=== PATIENT | female | born 1960 | race Caucasian/White ===

== ENCOUNTER → 2018-01-01 | Outpatient (CLI) | payer BC ==
[2018-01-01 10:03] LABS: ALT 29 U/L (9-52); AST 22 U/L (14-36); Albumin 4.5 g/dL (3.5-5.0); Alkaline Phosphatase 80 U/L (38-126); Anion Gap 11 mmol/L; Blood Urea Nitrogen 17 mg/dL (7-17); Carbon Dioxide 28 mmol/L (22-30); Chloride 101 mmol/L (98-107); Cholesterol 199 mg/dL (<200); Glucose 116 mg/dL (74-99); Potassium 4.7 mmol/L (3.5-5.1); Sodium 140 mmol/L (137-145); Total Bilirubin 0.6 mg/dL (0.2-1.3); Total Protein 7.1 g/dL (6.3-8.2); Triglycerides 55 mg/dL (<150)
[2018-01-01 11:13] LABS: HDL Cholesterol 114 mg/dL (40-60); LDL Cholesterol,Calculated 74 mg/dL (0-99)
[2018-01-01 19:30] LABS: Hemoglobin A1C 9.6 % (4.0-6.0)
== END | disposition home or self-care (01) ==
LOC: LABWHC1 09:15
PROVIDERS: ATTEND Internal Medicine Endocrinology, Diabetes & Metabolism
DX: E10.65 Type 1 diabetes mellitus with hyperglycemia (principal)
CPT/HCPCS: 36415; 80053; 80061; 83036; 84443

== ENCOUNTER → 2018-05-05 | Outpatient (CLI) | payer BC ==
[2018-05-05 10:26] LABS: ALT 28 U/L (9-52); AST 20 U/L (14-36); Albumin 4.2 g/dL (3.5-5.0); Alkaline Phosphatase 70 U/L (38-126); Anion Gap 7 mmol/L; Blood Urea Nitrogen 16 mg/dL (7-17); Calcium 9.7 mg/dL (8.4-10.2); Carbon Dioxide 27 mmol/L (22-30); Chloride 104 mmol/L (98-107); Cholesterol 192 mg/dL (<200); Glucose 75 mg/dL (74-99); HDL Cholesterol 92 mg/dL (40-60); LDL Cholesterol,Calculated 90 mg/dL (0-99); Potassium 4.4 mmol/L (3.5-5.1); Sodium 138 mmol/L (137-145); Total Bilirubin 0.5 mg/dL (0.2-1.3); Total Protein 6.8 g/dL (6.3-8.2); Triglycerides 51 mg/dL (<150)
[2018-05-05 18:41] LABS: Hemoglobin A1C 9.9 % (4.0-6.0)
== END | disposition home or self-care (01) ==
LOC: LABWHC1 09:12
PROVIDERS: ATTEND Internal Medicine Endocrinology, Diabetes & Metabolism
DX: E10.65 Type 1 diabetes mellitus with hyperglycemia (principal)
CPT/HCPCS: 36415; 80053; 80061; 83036; 84443

== ENCOUNTER 2022-04-05 06:20 | Day surgery (SDC) | payer BC ==
[2022-04-03 15:39] VITALS: BMI 21.9
--- NOTE | 2022-04-05 05:59 | P.GSHP ---
History of Present Illness H&P Date: 04/05/22 CHIEF COMPLAINT: Left shoulder mass HISTORY OF PRESENT ILLNESS: The patient is a 61 year-old female who presentss with a mass along the left shoulder for over 6 months. She reports discomfort. She presents today for surgical excision. PAST MEDICAL HISTORY: Please see list. PAST SURGICAL HISTORY: Please see list. MEDICATIONS: Please see list. ALLERGIES: Please see list. SOCIAL HISTORY: Please see list. FAMILY HISTORY: No reports of Crohn disease or ulcerative colitis. REVIEW OF ORGAN SYSTEMS: CONSTITUTIONAL: No reports of fevers or chills. GI: Denies any blood in stools or constipation. PHYSICAL EXAM: VITAL SIGNS: Stable Musculoskeletal: No clubbing cyanosis or edema Skin: 3 cm mobile lipoma of the left shoulder girdle. GENERAL: Well developed and in no acute distress. Pleasant. HEENT: No sclera icterus. Extraocular movements grossly intact. Moist buccal mucosa. Head is atraumatic, normocephalic. Hears conversational speech. No nasal drainage. NECK: Supple without lymphadenopathy. No JV distention. CHEST: Non-labored respirations and equal bilateral excursions. CARDIOVASCULAR: Regular rate and rhythm. Palpable 2+ radial pulses. ABDOMEN: Soft. Non-tender. Nondistended. NEUROLOGIC: No focal or lateralizing signs. PSYCH: Appropriate affect. Alert and oriented to person, place and time. ASSESSMENT: 1. Lipoma of the left shoulder girdle. PLAN: 1. Will proceed of excision of subcutaneous tumor along the back. 2. DVT prophylaxis. 3. Antibiotic prophylaxis. 4. Time of recovery, at least one week. 5. Recommend recent CBC, CMP 6. Pre-op pain and medication management with Pepcid, Mobid, Tylenol, Scopolamine Past Medical History Past Medical History: Asthma, Diabetes Mellitus, Thyroid Disorder Additional Past Medical History / Comment(s): mass left shoulder,takes losartan to protect the kidneys History of Any Multi-Drug Resistant Organisms: None Reported Past Surgical History: Tubal Ligation Past Anesthesia/Blood Transfusion Reactions: No Reported Reaction Additional Past Anesthesia/Blood Transfusion Reaction / Comment(s): no hx blood transfusion Smoking Status: Former smoker - Past Family History Mother Family Medical History: No Reported History Brother(s) Family Medical History: Cancer Additional Family Medical History / Comment(s): leukemia Father Family Medical History: Cancer Medications and Allergies Home Medications Medication Instructions Recorded Confirmed Type Albuterol Sulfate [Albuterol 2 puff INHALATION QID PRN 04/03/22 04/03/22 History Sulfate Hfa] Insulin Glargine [Lantus Vial] 20 unit SQ BID 04/03/22 04/03/22 History Levothyroxine Sodium [Synthroid] 50 mcg PO QAM 04/03/22 04/03/22 History Losartan Potassium [Cozaar] 50 mg PO HS 04/03/22 04/03/22 History Montelukast Sodium [Singulair] 10 mg PO HS 04/03/22 04/03/22 History Allergies Allergy/AdvReac Type Severity Reaction Status Date / Time No Known Allergies Allergy Verified 04/03/22 15:26
[~2022-04-05 06:20] MED LIST: ACETAMINOPHEN TAB 500 MG TAB PO PRN; FAMOTIDINE 20 MG TAB PO PRN; HEPARIN SODIUM,PORCINE/PF 5,000 UNIT/0.5 ML SYRINGE SQ PRN; MELOXICAM 7.5 MG TAB PO PRN; Pre Op ABX Message 1 EACH MISC MISCELLANE ONE; SCOPOLAMINE 1 MG/72 HR PATCH TRANSDERM PRN
[2022-04-05] MEDS ORDERED: ONDANSETRON 4 MG/2 ML VIAL IVP ONE (06:40)
[2022-04-05] MEDS ORDERED: LIDOCAINE 1% (10MG/ML) FOR IV START INTRADERMA PRN (06:40)
[2022-04-05] MEDS ORDERED: DEXAMETHASONE SOD PHOSPHATE 4 MG/ML 1 ML VIAL IV ONE (06:40)
[2022-04-05] MEDS ORDERED: LACTATED RINGERS 1,000 ML IV SCH (06:40)
[2022-04-05] MEDS ORDERED: METOCLOPRAMIDE 5 MG/ML 2 ML VIAL IVP PRN (07:00)
[2022-04-05] MEDS ORDERED: HYDROmorphone 0.5 MG/0.5 ML SYRINGE IVP PRN (07:00)
[2022-04-05 07:09] LABS: Glucose,Whole Blood 99 mg/dL (70-110)
[2022-04-05] MEDS ORDERED: MIDAZOLAM 2 MG/2 ML VIAL ONE (07:36)
[2022-04-05] MEDS ORDERED: fentaNYL (PF) 50 MCG/ML 2 ML AMP ONE (07:36)
[2022-04-05] MEDS ORDERED: KETOROLAC 15 MG/ML 1 ML VIAL ONE (07:36)
[2022-04-05] MEDS ORDERED: BUPIVACAIN-EPI 0.25%-1:200,000 30 ML VIAL SQ ONE (07:36)
[2022-04-05] MEDS ORDERED: PROPOFOL 10 MG/ML 20 ML VIAL IV ONE (07:36)
[2022-04-05] MEDS ORDERED: LIDOCAINE 2% INJ 20 MG/ML (2 ML VIAL) ONE (07:36)
[2022-04-05 07:41] LABS: Basophils # (A) 0.1 k/uL (0-0.2); Basophils % (A) 1 %; Eosinophils # (A) 0.3 k/uL (0-0.7); Eosinophils % (A) 5 %; HCT 38.7 % (34.0-46.0); HGB 13.1 gm/dL (11.4-16.0); Lymphocytes # (A) 1.6 k/uL (1.0-4.8); Lymphocytes % (A) 28 %; MCH 31.8 pg (25.0-35.0); MCHC 33.8 g/dL (31.0-37.0); Mean Platelet Volume 8.7; Monocytes # (A) 0.3 k/uL (0-1.0); Monocytes % (A) 6 %; Neutrophils # (A) 3.3 k/uL (1.3-7.7); Neutrophils % (A) 59 %; Platelet Count 295 k/uL (150-450); RBC 4.12 m/uL (3.80-5.40); RDW 13.3 % (11.5-15.5); WBC 5.7 k/uL (3.8-10.6)
[2022-04-05 07:45] LABS: ALT 22 U/L (4-34); AST 31 U/L (14-36); African American GFR (CKD) >90 (>60 ml/min/1.73 sqM); Albumin 4.4 g/dL (3.5-5.0); Alkaline Phosphatase 66 U/L (38-126); Anion Gap 5 mmol/L; Blood Urea Nitrogen 14 mg/dL (7-17); Calcium 9.5 mg/dL (8.4-10.2); Carbon Dioxide 27 mmol/L (22-30); Chloride 104 mmol/L (98-107); Glucose 111 mg/dL (74-99); Non-African American GFR(CKD) >90 (>60 ml/min/1.73 sqM); Sodium 136 mmol/L (137-145); Total Bilirubin 0.9 mg/dL (0.2-1.3)
[2022-04-05 07:55] LABS: Potassium 4.6 mmol/L (3.5-5.1)
[2022-04-05 08:35] LABS: Glucose,Whole Blood 153 mg/dL (70-110)
--- NOTE | 2022-04-05 08:52 | P.OP ---
Date of Procedure: 04/05/22 Description of Procedure: SURGEON: CHLOE ESPINO MD [employer] ADMINISTRATOR: None. PREOPERATIVE DIAGNOSES: 1. Left posterior shoulder mass 2. Hypertensive heart disease 3. Diabetes type 2, insulin-dependent 4. Hypothyroidism 5. Chronic obstructive pulmonary disease POSTOPERATIVE DIAGNOSES: 1. Deep isubfascial left posterior shoulder mass, 6 x 4 cm 2. Hypertensive heart disease 3. Diabetes type 2, insulin-dependent 4. Hypothyroidism 5. Chronic obstructive pulmonary disease PROCEDURES PERFORMED: 1. Excision of deep subfascial posterior left shoulder mass, 6 x 4 cm 2. Intermediate closure left posterior shoulder incision, 9 -cm Anesthesia: GETA, local Estimated Blood Loss (ml): 5 Pathology: other (shoulder mass) Condition: stable Disposition: same day COMPLICATIONS: None. FINDINGS: 1. Deep intramuscular lipoma left posterior shoulder deep to the fascia, 6 x 4 cm INDICATIONS: The patient is a 61-year-old female who presents with symptomatic deep left posterior shoulder tumor. Benefits and risks of surgical intervention were described including bleeding, infection. Informed consent was obtained. DESCRIPTION OR PROCEDURE: In the preoperative area, the area of concern was marked with indelible marker. Patient was brought into the operating room. After general induction, she was positioned in right lateral decubitus position. The shoudler was prepped and draped in a standard sterile fashion with ChloraPrep with Ioban drapping. Timeout protocol was confirmed with the surgical team regarding the patient's name, procedure to be performed including preoperative medications. DVT prophylaxis was confirmed with SCDs. A field block was placed of the left shoulder. A posterior transverse 9-cm incision made over the prominence of the mass using #15 blade. Electro-Bovie cautery including blunt dissection was used to circumferential dissect an deep subfascial/intramuscular lipoma of the left shoulder. Dissection extended into the posterior deltoid muscle. The tumor was removed in total. The tumor was measured of 6-cm x 4-cm. Hemostasis was excellent. 0 Vicryl was placed for the deep subcutaneous tissue followed by 3-0 Monocryl for the dermis in a running subcuticular fashion. The skin was cleansed and Exofin tape with liquid was applied. The incision was covered with Optifoam dressing. Local anesthetic was placed. At the end of the procedure, needle, sponge, and instrument count was verified correct by surgical attendant. Operative findings including digital imaging was shared with the patient's family. Plan - Discharge Summary Discharge Rx Participant: No New Discharge Prescriptions: New Ibuprofen [Motrin] 600 mg PO Q8HR PRN #30 tab PRN Reason: Pain Acetaminophen Tab [Tylenol Tab] 1,000 mg PO Q6HR PRN #30 tablet PRN Reason: Pain Continue Losartan Potassium [Cozaar] 50 mg PO HS Albuterol Sulfate [Albuterol Sulfate Hfa] 2 puff INHALATION QID PRN PRN Reason: sob Montelukast Sodium [Singulair] 10 mg PO HS Levothyroxine Sodium [Synthroid] 50 mcg PO QAM Insulin Glargine [Lantus Vial] 20 unit SQ BID Discharge Medication List Albuterol Sulfate [Albuterol Sulfate Hfa] 2 puff INHALATION QID PRN 04/03/22 [History] Insulin Glargine [Lantus Vial] 20 unit SQ BID 04/03/22 [History] Levothyroxine Sodium [Synthroid] 50 mcg PO QAM 04/03/22 [History] Losartan Potassium [Cozaar] 50 mg PO HS 04/03/22 [History] Montelukast Sodium [Singulair] 10 mg PO HS 04/03/22 [History] Acetaminophen Tab [Tylenol Tab] 1,000 mg PO Q6HR PRN #30 tablet 04/05/22 [Rx] Ibuprofen [Motrin] 600 mg PO Q8HR PRN #30 tab 04/05/22 [Rx] Follow up Appointment(s)/Referral(s): Chloe Espino MD [STAFF PHYSICIAN] - 04/10/22 Patient Instructions/Handouts: Lipoma Removal (DC) Activity/Diet/Wound Care/Special Instructions: DO NOT REMOVE DRESSING. NO WIDE MOTIONS OF THE SHOULDERS/ARMS FOR 1 WEEK. NO BENDING AT THE HIPS WHILE SITTING NO EXTREME STRETCHING OF THE BACK See instructions on dressing. No lifting over 10 pounds in 2 weeks, Apr 19January shower. No bath tub soaks for two weeks, Apr 19 Diet as tolerated. Use Tylenol and ibuprofen or Aleve scheduled for the next 24-48 hours for best pain relief. Use ice along incisions for today to prevent swelling. Discharge Disposition: HOME SELF-CARE
[2022-04-05 09:11] VITALS: PULSE 69; RESP 14; TEMP 96.8
[2022-04-05 09:33] VITALS: BP 125/73
== END 2022-04-05 09:49 | disposition home or self-care (01) ==
LOC: OR 06:20
PROVIDERS: ATTEND Surgery Plastic and Reconstructive Surgery
DX: D17.22 Benign lipomatous neoplasm of skin and subcutaneous tissue of left arm (principal); I11.9 Hypertensive heart disease without heart failure; E11.9 Type 2 diabetes mellitus without complications; Z79.4 Long term (current) use of insulin; E03.9 Hypothyroidism, unspecified; J44.9 Chronic obstructive pulmonary disease, unspecified; Z79.890 Hormone replacement therapy; Z79.899 Other long term (current) drug therapy; Z87.891 Personal history of nicotine dependence; Z80.6 Family history of leukemia
CPT/HCPCS: 88304; 80053; 85025; 23073; J2250; J1100; J0690; J2405; J3010; J1885; J2704; J1644; J2001